=== PATIENT | male | born 1980 | race Caucasian/White ===

== ENCOUNTER 2020-09-04 15:41 | Emergency (ER) | payer OTHER ==
[2020-09-04] MEDS ORDERED: GLUCAGON EMERGEN1 MG SC (16:41)
== END 2020-09-04 17:03 | disposition home or self-care (01) ==
LOC: FER 15:41
DX: E10.649 Type 1 diabetes mellitus with hypoglycemia without coma (principal)
CPT/HCPCS: 99283